=== PATIENT | male | born 1965 | race Caucasian/White ===

== ENCOUNTER → 2025-05-02 07:11 | Outpatient (REF) | payer BC, SELFPAY | LOC: RCS 07:11 | PROVIDERS: ATTENDING PHYSICIAN Internal Medicine Cardiovascular Disease; FAMILY PHYSICIAN Internal Medicine | DX: I25.10 Atherosclerotic heart disease of native coronary artery without angina pectoris (principal); I25.5 Ischemic cardiomyopathy | CPT/HCPCS: 93306; Q9950 ==